=== PATIENT | female | born 1995 | race Caucasian/White ===

== ENCOUNTER 2020-01-21 08:20 | Outpatient (CLI) | payer OTHER, SELFPAY ==
--- NOTE | ~2020-01-21 | US_ITS ---
EXAMINATION: US OB <= 14 weeks fetus DATE: 01/21/2020 09:38 INDICATION: Uncertain dates. TECHNIQUE: Real-time transabdominal pelvic ultrasound was performed. COMPARISON: None. FINDINGS: The uterus measures 8.7 x 8.1 x 6.6 cm. There is an intrauterine gestational sac. A yolk sac is iden tified. The crown rump length measures 2.4 cm, which correlates with an estimated gestational age of 9 weeks and 1 day(s) (+/-) 6 day(s). heart motion is identified measuring 157 beats per minute (bpm) by M-mode Doppler. The right ovary measuers 4.1 x 2.2 x 2.3 cm. The left ovary measures 3.8 x 3.8 x 4.0 cm. There is a 3.1 cm cyst in left ovary, likely a corpus luteum cyst. There is no fr ee fluid in the pelvis. IMPRESSION: 1. Single living intrauterine gestation with estimated date of delivery 08/24/2020. Reviewed, dictated and finalized at location A. IMPRESSION: 1. Single living intrauterine gestation with estimated date of delivery 2019.
== END 2020-01-21 08:21 | disposition home or self-care (01) ==
LOC: ANHIMG 08:28
PROVIDERS: PCP Internal Medicine; Visit Provider Obstetrics & Gynecology
DX: Z36.87 Encounter for antenatal screening for uncertain dates (principal)
CPT/HCPCS: 76801

== ENCOUNTER 2020-04-12 12:27 | Outpatient (CLI) | payer OTHER, SELFPAY ==
--- NOTE | ~2020-04-12 | US_ITS ---
EXAMINATION: US OB /maternal detail DATE: 04/12/2020 13:40 INDICATION: Second trimester anatomic survey TECHNIQUE: Real-time ultrasound of the pelvis was performed. COMPARISON: None. FINDINGS: There is a single living fetus in variable presentation. The placenta is fundal. heart rate is 137 beats per minute (bpm). cardiac activity and movement are noted. The amniotic fluid index is subjectively normal. The following anatomy was identified as normal: 4 chamber heart 3 vessel cord cord insertion kidneys urinary bladder stomach spine diaphragm ventricles cisterna magna cerebellum The following biometric data were obtained: Biparietal diameter (BPD): 4.6 cm; head circumference (HC): 18.0 cm; abdominal circumference (AC): 16 .0 cm; femur length (FL): 3.5 cm. These measurements are concordant. Estimated weight is 400 g +/- 60 g, which correlates with the 59th percentile when 08/24/2020 i s used as estimated date of delivery. As single measurements, these parameters are each equal to the following estimated gestational ages w ith ranges of +/- 2 standard deviations: BPD: 20 weeks 1 days ( 18 weeks 3 days - 21 weeks 6 days). HC: 20 weeks 3 days ( 19 weeks 0 days - 21 weeks 6 days). AC: 21 weeks 1 days ( 19 weeks 0 days - 23 weeks 1 days). FL: 21 weeks 3 days ( 19 weeks 4 days - 23 weeks 1 days). estimated gestational age based solely on measurements from this exam is 20 weeks 6 days +/- 1 weeks 3 days. IMPRESSION: 1. Single living fetus in variable presentation. 2. Estimated weight is 400 g +/- 60 g, which correlates with the 59th percentile when 0 is used as estimated date of delivery. Reviewed, dictated and finalized at location A. IMPRESSION: 1. Single living fetus in variable presentation. 2. Estimated weight is 400 g +/- 60 g, which correlates with the 59th per centile when 08/24/2020 is used as estimated date of delivery.
== END 2020-04-12 12:28 | disposition home or self-care (01) ==
LOC: ANHIMG 12:29
PROVIDERS: PCP Internal Medicine; Visit Provider Obstetrics & Gynecology
DX: Z36.9 Encounter for antenatal screening, unspecified (principal)
CPT/HCPCS: 76805

== ENCOUNTER 2020-06-07 14:45 | Outpatient (RCR) | payer OTHER, SELFPAY ==
[2020-06-07 16:58] LABS: Hematocrit 30.2 % (37.0-47.0); Hemoglobin 9.8 g/dL (12.0-15.0)
[2020-06-07 17:09] LABS: Glucose 1 Hour PP 50gm Dose 130 mg/dL
[2020-06-07 17:56] LABS: Vitamin D 25 Hydroxy 48.2 ng/mL
[2020-06-07 18:57] LABS: HIV 1/2 Ab P24 Ag Result Negative (Negative)
[2020-06-08] MEDS: RHO(D) IMMUNE GLOBULIN 300 MCG SYRINGE IM (12:29)
== END 2020-09-05 23:59 | disposition home or self-care (01) ==
LOC: ANHLAB 14:45
PROVIDERS: PCP Internal Medicine; Visit Provider Obstetrics & Gynecology
DX: Z29.13 Encounter for prophylactic Rho(D) immune globulin (principal); O36.0920 Maternal care for other rhesus isoimmunization, second trimester, not applicable or unspecified; Z11.4 Encounter for screening for human immunodeficiency virus [HIV]; Z3A.00 Weeks of gestation of pregnancy not specified
CPT/HCPCS: 36415; 82306; 82947; 85014; 85018; 85461; 86703; 90384; G0432; J2790

== ENCOUNTER 2020-07-31 17:47 | Observation (INO) | payer OTHER, SELFPAY ==
[2020-07-31] VITALS (51 sets, daily range): BP systolic 106; BP diastolic 75; PULSE 25–89; TEMP 37.1; O2SAT 85–100; BMI 25.5
[2020-07-31 19:08] LABS: Add Urine Microscopic? YES; Appearance Urine Clear (Clear); Bacteria Urine Trace /hpf; Bilirubin Urine Negative (Negative); Blood Urine Negative (Negative); Color Urine Yellow (Yellow); Glucose Urine UA Negative (Negative); Ketones Urine Negative (Negative); Leukocyte Esterase Ur Trace LEU/UL (Negative); Mucus Urine Rare /lpf; Nitrate Urine Negative (Negative); Protein Urine Negative (Negative); RBC Urine 0-2 /hpf (0-2); Specific Grav Ur 1.014 (1.001-1.035); Squamous Epithelial Cell Urine Moderate /hpf (Few); Urobilinogen Urine Negative mg/dL (<2.0)
--- NOTE | 2020-07-31 22:32 | LDADM ---
This patient, Carmen Kaur, was admitted to Labor/Delivery/Recovery 108 on 07/31/20 at 17:47. Plans for labor, pain management and were discussed with patient. Patient/family oriented to hospital policies and general routines including ID bracelet, bed and alarms, visiting hours, pain management, procedures, bathroom and other care routines, personal items, smoking policy, room service/diet and guest tray routines, infant security routines, and visiting hours. Patient/Family are encouraged to report perceived risks to care and to ask questions if they do not understand what they are told or what they should do. See OBIX for further documentation.
--- NOTE | 2020-08-04 11:18 | PM.OBTRLD ---
OB - Triage/Final Diagnosis Visit Information Comments/Additional reasons for admission: back pain Evaluation Laboratory results: Laboratory Tests 07/31/20 18:40 Urine Color Yellow Urine Appearance Clear Urine pH 7.0 Ur Specific [place] 1.014 Urine Protein Negative Urine Glucose (UA) Negative Urine Ketones Negative Ur Blood (Man) Negative Urine Nitrate Negative Urine Bilirubin Negative Urine Urobilinogen Negative Leukocyte Esterase Rfl Trace H Urine RBC 0-2 Urine WBC 4-6 H Ur Squamous Epith Cells Moderate H Urine Bacteria Trace Urine Mucus Rare
== END 2020-07-31 22:25 | disposition home or self-care (01) ==
PROVIDERS: Admitting Provider Obstetrics & Gynecology Gynecology; PCP Internal Medicine; Visit Provider Obstetrics & Gynecology Gynecology
DX: O99.891 Other specified diseases and conditions complicating pregnancy (principal); M54.9 Dorsalgia, unspecified; Z3A.36 36 weeks gestation of pregnancy
CPT/HCPCS: 81001; G0378; G0379

== ENCOUNTER 2020-08-06 23:35 | Observation (INO) | payer OTHER, SELFPAY ==
--- NOTE | 2020-08-07 04:41 | OBADM ---
This patient, Carmen Kaur, admitted to the OB room Labor/Delivery/Recovery 102 for observation. Patient/family oriented to hospital policies and general routines including ID bracelet, bed and alarms, visiting hours, pain management, procedures, bathroom and other care routines, personal items, smoking policy, room service/diet, and visiting hours. Patient/Family are encouraged to report perceived risks to care and to ask questions if they do not understand what they are told or what they should do.
--- NOTE | 2020-08-10 15:50 | PM.OBTRLD ---
OB - Triage/Final Diagnosis Final Diagnosis (1) False labor: Code(s): O47.9 - False labor, unspecified Status: Acute
== END 2020-08-07 02:55 | disposition home or self-care (01) ==
PROVIDERS: Admitting Provider Obstetrics & Gynecology; PCP Internal Medicine; Visit Provider Obstetrics & Gynecology
DX: O47.9 False labor, unspecified (principal); Z3A.00 Weeks of gestation of pregnancy not specified
CPT/HCPCS: G0378; G0379

== ENCOUNTER 2020-08-15 22:07 | Inpatient (IN) | payer OTHER, SELFPAY ==
[2020-07-25 12:41] VITALS: BMI 25.7
[2020-08-15] VITALS (9 sets, daily range): BP systolic 115–130; BP diastolic 71–90; PULSE 75–101; TEMP 37
[2020-08-15 22:27] LABS: Basophils Absolute Auto 0.1 K/mm3 (0.0-0.1); Basophils Percent Auto 0.4 % (0.2-1.2); Eosinophils Absolute Auto 0.2 K/mm3 (0-0.3); Eosinophils Percent Auto 1.5 % (0-4.4); Hematocrit 35.3 % (37.0-47.0); Hemoglobin 11.7 g/dL (12.0-15.0); Immature Granulocyte Absolute 0.11 K/mm3 (0.00-0.031); Immature Granulocyte Percent A 0.7 % (0-0.5); Lymphocytes Absolute Auto 2.15 K/mm3 (0.9-3.2); Lymphocytes Percent Auto 13.7 % (18.3-44.2); Mean Corpuscular HGB Conc 33.1 g/dl (32-36); Mean Corpuscular Hemoglobin 29.8 pg (26-34); Mean Corpuscular Volume 90.1 fl (80-100); Mean Platelet Volume 10.6 fl (7.4-10.4); Monocytes Absolute Auto 1.1 K/mm3 (0.1-0.6); Monocytes Percent Auto 7.2 % (2.6-8.5); Neutrophils Absolute Auto 11.9 K/mm3 (1.3-6.7); Neutrophils Percent Auto 76.5 % (45.5-73.1); Platelet Count Result 322 k/mm3 (150-375); Red Blood Count 3.92 M/mm3 (4.2-5.4); Red Cell Distribution Width 15.2 % (11.5-14.5); White Blood Count 15.6 K/mm3 (4.5-10.0)
[2020-08-15 23:23] LABS: HIV 1/2 Ab P24 Ag Result Negative (Negative)
[2020-08-15] MEDS: OXYTOCIN 30 UNITS/NS 500 ML 30 UNITS/500 ML BAG 125 UNITS IV CONT (23:31)
[2020-08-16] VITALS (9 sets, daily range): BP systolic 101–123; BP diastolic 68–83; PULSE 66–82; RESP 16–18; TEMP 36.6–36.7; O2SAT 98–100
--- NOTE | 2020-08-16 00:42 | P.HP_ITS ---
Obstetrics - Admit Note Admission Note: complete and 0 station record reviewed. No pertinent additions to the history and/or any subsequent changes in the physical findings that are not consistent with the expected course of the were found. Additions to the history and/or subsequent changes in the physical findings foll ow. None.
--- NOTE | 2020-08-16 00:44 | P.PCNOB_ITS ---
OB - Delivery Note Procedure Delivery date: 08/16/20 Intrapartal events: None Delivery monitor: external FHT and external uterine Route of delivery: Laceration Description: None Specimen: Yes Estimated blood loss (mL): 300 Anesthesia type: None Disposition: floor [place] Baby Date of : 08/15/20 Time of : 22:47 Weeks of gestation at delivery: 38 gender: Male Weight (pounds): 6 Weight (ounces): 7 presentation: vertex position: Left Occiput Anterior Placenta delivery description: Spontaneous cord vessel description: 3 Vessels score one minute: 9 score five minutes: 9
--- NOTE | 2020-08-16 01:40 | OBPPTRN ---
Patient transferred to post room # via wheelchair. Support person present. Oriented to unit, room, information board, rooming in, admission packet and security measures. Patient verbalizes understanding. Infant is getting a bath.
[2020-08-16 05:57] LABS: Hematocrit 27.7 % (37.0-47.0); Hemoglobin 9.1 g/dL (12.0-15.0)
--- NOTE | 2020-08-16 05:59 | LDADM ---
This patient, Carmen Kaur, was admitted to OB 2nd Floor Room 280 on 08/15/20 at 22:07. Plans for labor, pain management and were discussed with patient. Patient/family oriented to hospital policies and general routines including ID bracelet, bed and alarms, visiting hours, pain management, procedures, bathroom and other care routines, personal items, smoking policy, room service/diet and guest tray routines, infant security routines, and visiting hours. Patient/Family are encouraged to report perceived risks to care and to ask questions if they do not understand what they are told or what they should do. See OBIX for further documentation.
[2020-08-16] MEDS: IBUPROFEN 600 MG TABLET PO ×2 (08:28→16:33)
[2020-08-16] MEDS: DOCUSATE SODIUM 100 MG CAPSULE PO ×2 (08:29→16:32)
[2020-08-16] MEDS: LEVOTHYROXINE SODIUM 100 MCG TABLET PO (08:29)
[2020-08-16] MEDS: POLYSACCHARIDE IRON COMPLEX 150 MG CAPSULE PO ×2 (08:29→16:32)
[2020-08-16] MEDS: MULTIVIT/MIN/PREN/FOL AC/IRON TABLET 1 TAB PO (08:29)
[2020-08-16] MEDS: SERTRALINE HCL 50 MG TABLET PO (08:34)
--- NOTE | 2020-08-16 14:35 | PC.NURSE ---
Consulted with patient, mother reports infant has been early feeding with slight tenderness. Mother has been attempting to wake for this feeding. Observed has a tight frenulum. Mother denies discomfort with feeding. Discussed how a tight frenulum may impact latch and empting breast. Reviewed frenulum may stretch within the first week, advised to discuss with ICP at first visit. Demonstrated stimulation techniques to wake for feeding. Assisted with infant to breast. Infant sleepy several minutes of stimulate to wake to feed. Reviewed feeding cues, frequencies, duration of feedings, feeding elimination flow sheet, and signs of adequate intake. Reviewed positioning/alignment in cross cradle, holding breast in U hold and guided asymmetrical latch on. was able to latch correctly. nursed eagerly, with steady draws and occasional swallowing noted. Reviewed signs of a correct latch, effective nursing and suck swallow ratio. was able to maintain latch without discomfort to mother. Nipple care reviewed. Advised to stimulate to keep awake and nursing effectively for increased intake and to assist with maintaining deep latch. Instructed mother to call out for RN assistance if she is unable to latch for feeding or she has discomfort with nursing. Instructed feeding should be initiated three hours from start of last feeding or if feeding cues are noted before. Mother voiced understanding of information shared.
[2020-08-17] MEDS: RHO(D) IMMUNE GLOBULIN 300 MCG SYRINGE IM (05:55)
[2020-08-17 08:10] VITALS: BP 110/65; PULSE 84; RESP 18; TEMP 37; O2SAT 96
[2020-08-17 08:30] VITALS: PULSE 84; RESP 18; O2SAT 96
--- NOTE | 2020-08-17 10:10 | PC.NURSE ---
Mother is able to independently latch infant with appropriate positioning/alignment. She denies any nipple discomfort, is feeding as required and waking to feed if needed. has had at least effective feedings in the past 24 hours. Infant is currently meeting outcomes for weight, jaundice and feeding frequencies. is past 12 hours for urine output. Mother will initiate supplementation of 15-20 mls after each feeding and will pump for 5 minutes. Both are scheduled tomorrow for follow up and feeding plan will be reviewed by follow up RN. Mother states she feels confident to continue current feeding plan at home. Discussed when to increase supplementation. Reviewed transition to breast milk, signs of adequate intake, and engorgement/relief. Instructed to call ICP if intake/output less than required. Reviewed regular medications mother is taking. Information provided per Jen. Reviewed community resources on the [facility] website and in the Mom/Baby guide. Information on outpatient services provided. Mother has no further questions at this time.
[2020-08-17 11:09] LABS: Rapid Plasma Reagin Non-Reactive (NonReactive)
[2020-08-17] MEDS: POLYSACCHARIDE IRON COMPLEX 150 MG CAPSULE PO (11:15)
[2020-08-17] MEDS: MULTIVIT/MIN/PREN/FOL AC/IRON TABLET 1 TAB PO (11:15)
[2020-08-17] MEDS: LEVOTHYROXINE SODIUM 100 MCG TABLET PO (11:16)
[2020-08-17] MEDS: LANOLIN (LANSINOH) 7.5 GM CREAM 1 APPLIC TOPICAL (11:16)
[2020-08-17] MEDS: BENZOCAINE 20% AER SPR (*SP) 56 GM CAN 1 SPRAY TOPICAL (11:16)
[2020-08-17] MEDS: WITCH HAZEL 40 PADS 1 PAD TOPICAL (11:16)
[2020-08-17] MEDS: DOCUSATE SODIUM 100 MG CAPSULE PO (11:16)
[2020-08-17] MEDS: SERTRALINE HCL 50 MG TABLET PO (11:16)
[2020-08-18 11:31] VITALS: BP 114/81; PULSE 84; RESP 20; TEMP 36.8; O2SAT 97
--- NOTE | 2020-08-31 11:59 | PM.DS ---
DS: Admitting Diagnosis Admitting Diagnosis Admitting Diagnosis: CTX DS: Discharge Diagnosis Discharge Diagnosis (1) (normal spontaneous vaginal delivery): Code(s): O80 - Encounter for full-term uncomplicated delivery Status: Acute DS: Summary Time Spent with Patient Time attestation: Total time spent providing and/or coordinating discharge services: DS: Data Data Completed and Pending Completed studies during hospitalization: Pending at discharge 08/15/20 22:47 Surgical [PTH] Routine Discharge Plan Discharge Attending physician on discharge: Kwesi Garcia Discharging Clinician: Kwesi Garcia Patient Disposition: Home, Self-Care Activity: pelvic rest Diet: regular Discharge Instructions: Education: Mom and Baby Guide Given to: Mother Follow-Up: Call your delivering provider's office for an appointment to be seen in: 6 Weeks Mom and baby [facility] for the follow-up appointment. Appointment Date/Time: August 18, 2020 at 11:00 am What to expect at your follow-up visit: Blood Pressure Check Physical Assessment Call [phone] if you are unable to keep your appointment time. BREAST CARE: * Wear a snug supportive bra. * For engorgement discomfort: Breast Feeding: * Apply warm moist washcloths * Express milk as needed to relieve engorgement * Wear loose clothing * For sore nipples: * Identify correct latch-on * Apply warm moist washcloths before and after nursing * Air dry nipples after nursing * May apply Lansinoh cream to nipples EPISIOTOMY/PERINEAL CARE: * Until bleeding stops, use your alexis bottle after urinating * Change your pad frequently throughout the day * You may take sitz baths several times a day (fill your bathtub with warm water and soak for 20 minutes.) Do NOT bathe in the water * No tub baths until seen by your physician - You may shower ACTIVITY: * Rest as much as possible. * Do not exercise or lift anything heavier than your baby (such as laundry or other children.) * Avoid stairs or driving as much as possible. * Do not put anything into the vagina. No douching, tampons, or sexual activity until seen by physician. NOTIFY PHYSICIAN IF YOU HAVE ANY QUESTIONS OR IF ANY OF THE FOLLOWING SYMPTOMS OCCUR: * If your vaginal area becomes red, swollen, or more painful than what you have experienced in the hospital. * If your vaginal bleeding becomes foul smelling. * If your vaginal bleeding becomes more heavy than a period or if your bleeding changes from pink to bright red. However, you may pass an occasional walnut-sized clot once or twice for the first week . * If you experience a sharp, shooting pain in your calves. * If you discover a hard, reddened area on your breast or if you experience flu-like symptoms. DIET: * Eat regular, well-balanced meals. * Drink plenty of fluids daily. If , drink to thirst. Patient Instructions: Lanolin (On the skin), Your Baby (DC), Expression, Collection and Storage of Breast Milk (DC), and Nipple Soreness (ED), and Breast Engorgement (DC) Stand Alone Forms: General Discharge Information Follow-up/Referrals: Kwesi Garcia MD [Physician] - Discharge Medications: Continued levothyroxine 100 mcg tablet 100 mcg PO DAILY RF: 0 sertraline 50 mg tablet 50 mg PO DAILY RF: 0 Date of admission: 08/15/20 22:07 Primary Care Provider: Thompson Saldivar Admitting Provider: Kwsei Garcia Attending physician on admission: Kwesi Garcia Condition: Stable
== END 2020-08-17 11:50 | disposition home or self-care (01) | DRG 560 ==
LOC: ANHLDR 22:16 → ANHOB2 08-16 01:41
PROVIDERS: Admitting Provider Obstetrics & Gynecology; PCP Internal Medicine; Visit Provider Obstetrics & Gynecology
DX: O99.284 Endocrine, nutritional and metabolic diseases complicating childbirth (principal); Z37.0 Single live birth; Z3A.38 38 weeks gestation of pregnancy; E03.9 Hypothyroidism, unspecified
CPT/HCPCS: 36415; 85014; 85018; 85025; 85461; 86592; 86703; 86850; 86900; 86901; 88307; 90384; A9270; G0432; J2590; J2790

== ENCOUNTER 2022-05-28 15:01 | Outpatient (CLI) | payer OTHER, SELFPAY ==
--- NOTE | ~2022-05-28 | US_ITS ---
EXAMINATION: US pelvic complete w TV DATE: 05/28/2022 15:58 INDICATION: Evaluate IUD Comparison:Ultrasound dated 01/21/2020 TECHNIQUE: Multiple transabdominal and endovaginal sonographic images of the pelvis performed. FINDINGS: The uterus measures 7.8 x 3.6 x 5.5 cm. There is an IUD present in the endometrium. The end ometrial complex measures 3 mm . The right ovary measures 3.4 x 1.6 x 1.5 cm and the left ovary measures 4.4 x 1.7 x 1.7 cm. There ar e small follicles in each ovary. Normal doppler signal in both ovaries. There is no free fluid in the pelvis. There are no abnormal masses seen on either side. IMPRESSION: 1. Unremarkable pelvic ultrasound. Reviewed, dictated and finalized at location B.
== END 2022-05-28 15:02 | disposition home or self-care (01) ==
LOC: ANHIMG 15:07
PROVIDERS: PCP Hospitalist; Visit Provider Nurse Practitioner
DX: Z97.5 Presence of (intrauterine) contraceptive device (principal)
CPT/HCPCS: 76830; 76856